=== PATIENT | female | born 1945 | race African-American/Black ===

== ENCOUNTER 2017-06-21 18:09 | Emergency (ER) | payer OTHER, BC ==
[~2017-06-21] VITALS: Ht 165.1 cm; Wt 81.7 kg
[~2017-06-21 18:09] MED LIST: AMIGESIC750 MG PO; AMLODIPINE BESYL5 MG PO; ASPIRIN EC81 M1 PO; CELEBREX 200 M200 M1 PO; CEPHALEXIN 500500 M1 PO; COUMADIN 2 MG TA2 M1 PO; DOXYCYCLINE HYC50 MG PO; ENDUR-ACIN500 MG PO; ESTRACE0.5 MG PO; FINASTERIDE5 MG PO; FISH OIL + VIT1 EACH PO; FLUOCINONIDE60 ML TP; HYDROCHLOROTHIA25 M1 PO; NORCO 5-325 TA1 EACH PO; PERCOCET 5-3251 EACH PO; PREMARIN0.9 M1 PO; SIMVASTATIN20 MG PO; SULAR20 MG PO; THERA-M CAPLET1 EACH PO; XALATAN2.5 ML; ZANTAC 150MG T150 M1 PO; ZYRTEC10 M2 PO
[2017-06-21] MEDS ORDERED: LUMIGAN2.5 M1 OPHTHALMIC (19:59)
[2017-06-21] MEDS ORDERED: CYCLOBENZAPRINE5 MG PO (20:01)
[2017-06-21] MEDS ORDERED: MOBIC7.5 MG PO (20:01)
== END 2017-06-21 20:13 | disposition home or self-care (01) ==
LOC: ER 18:09
DX: S39.012A Strain of muscle, fascia and tendon of lower back, initial encounter (principal); S16.1XXA Strain of muscle, fascia and tendon at neck level, initial encounter; R51 Headache; I10 Essential (primary) hypertension; E78.00 Pure hypercholesterolemia, unspecified; Z90.89 Acquired absence of other organs; Z90.710 Acquired absence of both cervix and uterus; Z96.659 Presence of unspecified artificial knee joint; Z87.891 Personal history of nicotine dependence; V43.52XA Car driver injured in collision with other type car in traffic accident, initial encounter; Y93.I9 Activity, other involving external motion; Y92.89 Other specified places as the place of occurrence of the external cause; Y99.8 Other external cause status

== ENCOUNTER 2017-11-22 16:23 | Emergency (ER) | payer MEDICARE ==
[~2017-11-22] VITALS: Ht 165.1 cm; Wt 81.7 kg
--- NOTE | ~2017-11-22 | EKG ---
[address] [place] [address] ELECTROCARDIOGRAM REPORT Name: CLEM HERRERA Room #: [facility]#: [id number] Admission: 11/22/17 Attend Phys: Discharge: 11/22/17 Date of : 49 Report #: [id number] THIS REPORT FOR: //name// [facility] ED Test Date: 2017-11-22 Test Time: 16:43:52 Pat Name: CLEM HERRERA Department: Room: Gender: F Credit Representative: 14 : 1945 Requested By: Sharath Salazar Order Number: [id number] MD: Nestor Salinas Measurements Intervals [place] Rate: 70 P: 24 PA: 152 QRS: -7 QRSD: 93 T: 43 QT: 423 QTc: 457 Interpretive Statements Sinus rhythm Normal tracing Compared to ECG 04/24/2016 10:20:47 No significant changes Electronically Signed On 11-23-2017 8:59:13 LOG COOKER by Nestor Salinas [email or web address] <ELECTRONICALLY SIGNED> By: Nestor Salinas MD, [facility] 11/23/17 [id number] Nestor Salinas MD, FACC /EPI
[~2017-11-22 16:23] MED LIST changes: +CYCLOBENZAPRINE5 MG PO; +LUMIGAN2.5 M1 OPHTHALMIC; +MOBIC7.5 MG PO
[2017-11-22] MEDS ORDERED: TRAMADOL 50 MG50 MG PO ×2 (16:29→17:35)
[2017-11-22 17:00] LABS: ABSOLUTE NEUTROPHILS 3.6 thou/uL (1.4-8.2); BASOPHILS 1.4 % (0.0-2.0); EOSINOPHILS 3.8 % (0.0-3.0); HEMATOCRIT 39.9 % (37.0-47.0); HEMOGLOBIN 13.3 gm/dL (12.0-15.0); LYMPHOCYTES 39.7 % (24.0-44.0); MCH 29.8 pg (26.0-34.0); MCHC 33.4 g/dL (28.0-37.0); MCV 89.2 fL (80.0-100.0); MONOCYTES 5.6 % (1.0-8.0); PLATELET COUNT 280 thou/uL (150-400); POLYS 49.5 % (36.0-66.0); RBC 4.47 mil/uL (4.20-5.00); WBC 7.3 thou/uL (4.0-11.0)
[2017-11-22 17:05] LABS: ANION GAP 7 mmol/L (7-16); BUN 17 mg/dL (7-18); CALCIUM 9.7 mg/dL (8.5-10.1); CHLORIDE 105 mmol/L (98-107); CO2 28 mmol/L (21-32); GLUCOSE 98 mg/dL (74-106); POTASSIUM 3.6 mmol/L (3.5-5.1); SODIUM 140 mmol/L (136-145)
[2017-11-22 17:15] LABS: ALBUMIN 4.2 g/dL (3.4-5.0); MAGNESIUM 2.2 mg/dL (1.8-2.4); SGOT 43 U/L (15-37); SGPT 44 U/L (30-65); TOTAL BILIRUBIN 0.5 mg/dL (<0.1-1.0); TOTAL PROTEIN 7.9 g/dL (6.4-8.2); TROPONIN-I < 0.04 ng/mL (<0.06)
[2017-11-22] MEDS ORDERED: NORFLEX100 MG PO (17:35)
[2017-11-22] MEDS ORDERED: NAPROSYN500 MG PO (17:35)
[2017-11-22 17:50] VITALS: BP 156/84
== END 2017-11-22 17:57 | disposition home or self-care (01) ==
LOC: ER 16:23
PROVIDERS: Emergency Medicine
DX: M43.6 Torticollis (principal); I10 Essential (primary) hypertension; E78.00 Pure hypercholesterolemia, unspecified; Z90.710 Acquired absence of both cervix and uterus; Z96.659 Presence of unspecified artificial knee joint; Z87.891 Personal history of nicotine dependence